=== PATIENT | female | born 1980 | race Caucasian/White ===

== ENCOUNTER 2017-09-16 09:24 | Emergency (ER) | payer MEDICAID ==
[2017-09-16 09:49] VITALS: RESP 16; TEMP 98.2; O2SAT 99
[2017-09-16] MEDS ORDERED: Lidocaine 2% Inj (20ml) ONE (10:06)
[2017-09-16] MEDS ORDERED: Bacitracin 500 Units/gm Oint Foilpak UD ONE (10:57)
[2017-09-16 11:15] VITALS: BP 109/68; PULSE 70
--- NOTE | 2017-09-16 11:54 | C.PDOC ---
History Of Present Illness 37 yr old female presents to the ER for evaluation of a laceration to the left index finger, sustained EKG TECHNICIAN. Patient states she was cutting a avocado. Bleeding controlled with pressure. Reports tetanus is not UTD. Patient is right hand dominant. Denies weakness or numbness in the left hand and index finger. Time Seen by Provider: 09/16/17 09:55 Chief Complaint (Nursing): Abnormal Skin Integrity History Per: Patient History/Exam Limitations: no limitations Onset/Duration Of Symptoms: Sudden Onset (captain waiter/waitress) Current Symptoms Are (Timing): Still Present Past Medical History Reviewed: Historical Data, Nursing Documentation, Vital Signs Vital Signs: Last Vital Signs Temp 98.2 F 09/16/17 09:46 Pulse 70 09/16/17 11:14 Resp 16 09/16/17 11:14 BP 109/68 09/16/17 11:14 Pulse Ox 99 09/16/17 11:58 - Medical History PMH: Asthma Family History: States: No Known Family Hx - Social History Hx Tobacco Use: Yes Hx Alcohol Use: Yes Hx Substance Use: No - Immunization History Hx Tetanus Toxoid Vaccination: No Hx Influenza Vaccination: No Hx Pneumococcal Vaccination: No Review Of Systems Except As Marked, All Systems Reviewed And Found Negative. Musculoskeletal: Positive for: Other ((+) laceration to the left index finger) Neurological: Negative for: Weakness, Numbness Physical Exam - Physical Exam Appears: Non-toxic, No Acute Distress Skin: Warm, Dry, No Rash Oral Mucosa: Moist Respiratory: Normal Breath Sounds Extremity: Normal ROM, Capillary Refill (<2 secs), No Swelling, Other ((+) 2cm laceration to the base of left index finger) Neurological/Psych: Oriented x3, Normal Speech, Normal Motor, Normal Sensation, Normal Reflexes ED Course And Treatment O2 Sat by Pulse Oximetry: 99 (RA) Pulse Ox Interpretation: Normal Laceration - Laceration Repair Left Index Finger Wound Length (In cm): 2 Description Of Wound: Linear Wound Cleansed With: Sterile Saline Anesthesia: Lidocaine 2% Wound Examination: Irrigated With Saline, No FB With Wound Exploration, No Tendon Injury With Wound Exploration Wound Closure: Suture (4) Suture Technique And Material Used: Interrupted, Nylon (5-0) Wound Complexity: Simple Medical Decision Making Medical Decision Making: PLAN: * Tetanus IM Disposition - Disposition Referrals: [facility] Syed Cuevas, [Non-Staff] - Disposition: HOME/ ROUTINE Disposition Time: 10:55 Condition: GOOD Additional Instructions: Thank you for letting us take care of you today. The emergency medical care you received today was directed at your acute symptoms. If you were prescribed any medication, please fill it and take as directed. It may take several days for your symptoms to resolve. Return to the Emergency Department if your symptoms worsen, do not improve, or if you have any other problems. Please contact your doctor or call one of the physicians/clinics you have been referred to that are listed on the Patient Visit Information form that is included in your discharge packet. Bring any paperwork you were given at discharge with you along with any medications you are taking to your follow up visit. Our treatment cannot replace ongoing medical care by a primary care provider (PCP) outside of the emergency department. Thank you for allowing the [facility] team to be part of your care today. Follow up with your doctor in 7 days for suture removal. Prescriptions: Ibuprofen [Motrin] 800 mg PO Q6 PRN #20 tab PRN Reason: Pain, Moderate (4-7) Instructions: Care For Your Stitches (ED), Finger Laceration (ED) Forms: [employer] ([place]rainian) - Clinical Impression Clinical Impression: Finger laceration - Scribe Statement The provider has reviewed the documentation as recorded by the Laniibalexander Myles Provider Attestation: All medical record entries made by the Scribe were at my direction and personally dictated by me. I have reviewed the chart and agree that the record accurately reflects my personal performance of the history, physical exam, medical decision making, and the department course for this patient. I have also personally directed, reviewed, and agree with the discharge instructions and disposition.
== END 2017-09-16 11:14 | disposition home or self-care (01) ==
LOC: C.ER 09:24
DX: S61.211A Laceration without foreign body of left index finger without damage to nail, initial encounter (principal); W45.8XXA Other foreign body or object entering through skin, initial encounter; Z23 Encounter for immunization; Z87.891 Personal history of nicotine dependence